=== PATIENT | female | born 1975 | race Caucasian/White ===

== ENCOUNTER 2017-03-20 18:24 | Emergency (ER) | payer SELFPAY ==
--- NOTE | 2017-03-20 20:07 | ED Physician Chart ---
Chief Complaint/HPI - Patient Information Date Seen:: 03/20/17 Time Seen:: 18:40 Chief Complaint:: foot pain History of Present Illness:: 41-year-old female otherwise healthy, complains of acute, constant, worse with weightbearing, nonradiating, moderate to severe, 8 out of 10 at worst, sharp and aching, right foot pain over the ball of the foot that started 2 days ago after she stepped on a thorn that went through her shoe. Has associated puncture wound over the ball of the foot. Does not know when she had her last tetanus shot. Allergies:: Allergies Allergy/AdvReac Type Severity Reaction Status Date / Time No Known Allergies Allergy Verified 03/20/17 18:47 Vitals:: Vital Signs - 8 hr 03/20/17 18:49 Temp 98.3 F HR 84 RR 15 BP 147/66 O2 Sat % 98 Historian:: Patient Review:: Nurse's Note Reviewed Review of Systems - Review of Systems Other: Complete system review otherwise unremarkable except as noted in history of present illness. Past Medical History - Past Medical History Past Medical History: No significant medical hx Family History: None Social History: Non Smoker Surgical History: None Psychiatricy History: None Medication: None Family Medical History - Family Member Mother History Unknown: Yes Ethnicity: Non- Living Status: Still Living Hx Family Cancer: No Hx Family Coronary Artery Disease: No Hx Family Congestive Heart Failure: No Hx Family Hypertension: No Hx Family Stroke: No Hx Family Diabetes: No Hx Family Seizures: No Hx Family Dementia: No Hx Family AIDS: No Hx Family HIV: No Hx Family COPD: No Hx Family Hepatitis: No Hx Family Psychiatric Problems: No Hx Family Tuberculosis: No Physical Exam - Physical Examination Other:: INITIAL VITAL SIGNS: Reviewed by me GENERAL: Alert and interactive. No acute distress HEAD: Head is normocephalic and atraumatic EYES: EOMI. PERRL. No scleral icterus. No conjunctival injection ENT: Moist mucous membranes. NECK: Supple. No masses. Full range of motion RESPIRATORY: No tachypnea. Clear breath sounds bilaterally. No wheezing, rales, or rhonchi CV: Regular rate and rhythm. No murmurs, rubs, or gallops ABDOMEN: Soft, non-distended, non-tender. No guarding. No rebound. No masses. EXTREMITIES: Right foot has punctate wound over the ball of the foot. SKIN: Warm and dry. No obvious rashes. NEUROLOGIC: Alert and oriented. Face is symmetric. Speech is normal. Moves all extremities equally. Motor and sensory distally intact. Labs/Radiology/EKG Results - Radiology Results Results: X-ray right Foot 3V Interpreted by me: Bones: No fracture Joints: No dislocation Foreign body: No obvious foreign body ED Septic Shock - . Is Septic Shock (SBP<90, OR Lactate>4 mmol\L) present?: No - <6hrs of presentation: Vital Signs: Vital Signs - 8 hr 03/20/ 18:49 Temp 98.3 F HR 84 RR 15 BP 147/66 O2 Sat % 98 Reassessment (Disposition) - Reassessment Reassessment:: Blood pressure was noted to be elevated over 120/80. There were no signs of hypertension. Discussed the findings with the patient and recommended that the patient follow up with the primary care physician regarding the elevated blood pressure. There is a small punctate wound on the foot. Stepped on a thorn 2 days ago. X- rays are negative for any apparent foreign body. The area is tender to palpation. No apparent erythema or ecchymosis. Will give prophylactic Augmentin. Also give prophylactic tetanus shot. Also provided prescription for ibuprofen. Patient has appointment on with primary care. Recommended follow-up on with primary care. Gave return to ER precautions. Patient says she understands and agrees with the plan. - Diagnosis Diagnosis:: Acute right foot pain due to puncture wound, initial visit Elevated blood pressure without diagnosis of hypertension - Aftercare/Follow up Instructions Aftercare/Follow-Up Instructions:: Counseled pt regarding lab results/diagnosis & need follow up, Refer to Discharge Instructions Medication Prescribed:: Augmentin Ibuprofen - Patient Disposition Discharge/Transfer:: Home Time:: 20:55 Condition at Disposition:: Improved ED Discharge Plan - Patient Disposition Admit/Discharge/Transfer: PT DISCHARGED HOME Condition at Disposition: Improved Instructions: Puncture Wound, [id number]
--- NOTE | 2017-03-21 11:47 | Diagnostic Imaging Report ---
Right foot (3 views) HISTORY: Pain, trauma, question foreign body No acute bony abnormalities are seen. No definite acute fractures. No opaque foreign bodies. Relatively large spur formation is noted off the dorsal and plantar aspects the posterior calcaneus. IMPRESSION: 1. No definite acute bony abnormalities 2. Relatively large calcaneal spur formation 3. No radiopaque foreign bodies identified at this time. In the presence of recent trauma and persistent symptoms, a repeat radiograph in 5-7 days may be helpful for detection of a subtle or occult fracture.
== END 2017-03-20 21:15 | disposition home or self-care (01) ==
LOC: ER 18:24
DX: S91.331A Puncture wound without foreign body, right foot, initial encounter (principal); R03.0 Elevated blood-pressure reading, without diagnosis of hypertension; W22.8XXA Striking against or struck by other objects, initial encounter; Y93.89 Activity, other specified; Y92.89 Other specified places as the place of occurrence of the external cause; Y99.8 Other external cause status
CPT/HCPCS: 73630-TC-RT; Z7502

== ENCOUNTER 2019-02-04 20:08 | Emergency (ER) | payer SELFPAY ==
--- NOTE | 2019-02-04 20:40 | ED Physician Chart ---
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[employer] AND SHE WAS TRYING TO HOLD BACK THE EQUIPMENT ONDISPLAY FROM FALLING DOWN SHE TRIE TO STOP IT WITH HER RIGHT HAND AND HER THUMB GOT CAUGHT IN BETWEEN THE PLASTIC AND THE BLADE THEN TORKED DOEN WHILE THUMB WAS CAUGHT IN THE [facility]ASIC WITH PAIN RT THUMB AND THEN ALSO THE SECOND SAW STARTED TO FALL AND LAND ON HER RT FOREARM WITH PAIN RT FOREARM Allergies:: Allergies Allergy/AdvReac Type Severity Reaction Status Date / Time No Known Allergies Allergy Verified 02/04/19 20:28 Vitals:: Vital Signs - 8 hr 02/04/19 20:20 Temp 98.4 F HR 92 RR 18 BP 125/63 O2 Sat % 98 ED Review of Systems - Review of Systems General/Constitutional: No fever Skin: No rash, No bruising Head: No headache Eyes: No loss of vision ENT: No earache Cardio Vascular: No chest pain Pulmonary: No SOB GI: No vomiting Musculoskeletal: Bone or joint pain (RT FOREARM AND RT THUMB) Endocrine: No polyuria Allergic/Immuno: No urticaria Neurological: No syncope ED Past Medical History - Past Medical History Past Medical History: No significant medical hx Surgical History: other (D&C BTL) Family Medical History - Family Member Mother History Unknown: Yes Ethnicity: Non- Living Status: Still Living Hx Family Cancer: No Hx Family Coronary Artery Disease: No Hx Family Congestive Heart Failure: No Hx Family Hypertension: No Hx Family Stroke: No Hx Family Diabetes: No Hx Family Seizures: No Hx Family Dementia: No Hx Family AIDS: No Hx Family HIV: No Hx Family COPD: No Hx Family Hepatitis: No Hx Family Psychiatric Problems: No Hx Family Tuberculosis: No ED Physical Exam - Physical Examination General/Constitutional: Well-developed, well-nourished Head: Atraumatic ENMT: External ears, nose nl Neck: Nontender Respiratory: Nl effort/Exclusion Cardio Vascular: RRR GI: No tenderness/rebounding/guarding : No CVA tenderness Other Extremities comments:: PAINFUL ROM RT THUMB NILO ABDUCTION ROTATION Neuro/Psych: Alert/oriented (MILD TENDERNESS RT MID FOREARM) ED Assessment - Assessment General Assessment: SPRAIN RT THUMB FOREARM ED Septic Shock - . Is Septic Shock (SBP<90, OR Lactate>4 mmol\L) present?: No - <6hrs of presentation: Vital Signs: Vital Signs - 8 hr 02/04/19 20:20 Temp 98.4 F HR 92 RR 18 BP 125/63 O2 Sat % 98 ED Reassessment (Disposition) - Reassessment Reassessment:: RT THUMB FOREARM SPRAIN - Diagnosis Diagnosis:: ABOVE XRAY RT HAND FOREARM ORDERED - Patient Disposition Discharge/Transfer:: Home Condition at Disposition:: Stable
--- NOTE | 2019-02-05 08:26 | Diagnostic Imaging Report ---
Exam: Right forearm. HISTORY: Pain Findings: Multiple views of right forearm reviewed. The study demonstrates no evidence of fracture dislocation of soft tissue swelling. IMPRESSION: Normal examination right forearm.
--- NOTE | 2019-02-05 08:28 | Diagnostic Imaging Report ---
Exam: Right hand HISTORY: Pain Findings: Multiple views of the right hand reviewed. The study demonstrates no evidence of fracture, dislocation or soft tissue swelling. The radiocarpal joint is intact. IMPRESSION: Normal examination right hand.
== END 2019-02-04 21:18 | disposition home or self-care (01) ==
LOC: ER 20:08
DX: S63.601A Unspecified sprain of right thumb, initial encounter (principal); M79.631 Pain in right forearm; X58.XXXA Exposure to other specified factors, initial encounter; Y93.89 Activity, other specified; Y92.89 Other specified places as the place of occurrence of the external cause; Y99.8 Other external cause status
CPT/HCPCS: 73090-TC-RT; 73120-TC-RT; Z7502